=== PATIENT | male | born 1955 | race Caucasian/White ===

== ENCOUNTER 2022-07-23 13:26 | Observation (INO) | payer OTHER, MEDICARE ==
[~2022-07-23] VITALS: Ht 175.3 cm; Wt 52.0 kg
[2022-07-23] MEDS ORDERED: LIDOCAINE UROJET 2% GEL 10 ML PKG TOP ONE (14:00)
[2022-07-23 14:12] LABS: BASOPHILS # (AUTO) 0.1 10^3/uL (0.0-0.1); BASOPHILS % (AUTO) 0 % (0-10); EOSINOPHILS # (AUTO) 0.1 10^3/uL (0.0-0.3); EOSINOPHILS % (AUTO) 1 % (0-10); HEMATOCRIT 43 % (40-54); HEMOGLOBIN 14.8 g/dL (13.3-17.7); LYMPHOCYTES # (AUTO) 1.7 10^3/uL (1.0-4.0); LYMPHOCYTES % (AUTO) 12 % (12-44); MEAN CORPUSCULAR HEMOGLOBIN 30 pg (25-34); MEAN CORPUSCULAR HGB CONC 34 g/dL (32-36); MEAN CORPUSCULAR VOLUME 88 fL (80-99); MEAN PLATELET VOLUME 9.6 fL (9.0-12.2); MONOCYTES # (AUTO) 1.3 10^3/uL (0.0-1.0); MONOCYTES % (AUTO) 10 % (0-12); NEUTROPHILS # (AUTO) 10.7 10^3/uL (1.8-7.8); NEUTROPHILS % (AUTO) 77 % (42-75); PLATELET COUNT 315 10^3/uL (130-400)
[2022-07-23 14:22] LABS: POTASSIUM 4.8 MMOL/L (3.6-5.0)
[2022-07-23 14:23] LABS: CALCIUM 10.5 MG/DL (8.5-10.1)
[2022-07-23 14:27] LABS: CREATININE SERUM 2.28 MG/DL (0.60-1.30)
[2022-07-23 14:29] LABS: BILIRUBIN,URINE NEGATIVE (NEGATIVE); CLARITY,URINE CLOUDY; COLOR,URINE YELLOW; GLUCOSE, URINE (UA) NEGATIVE (NEGATIVE); KETONES,URINE NEGATIVE (NEGATIVE); LEUKOCYTE ESTERASE ,URINE NEGATIVE (NEGATIVE); NITRITE,URINE NEGATIVE (NEGATIVE); PROTEIN,URINE NEGATIVE (NEGATIVE)
--- NOTE | 2022-07-23 14:33 | ED GU-Male ---
General Chief Complaint: - Reproductive Stated Complaint: CANNOT URINATE Nursing Triage Note: TO ROOM 08 WITH COMPLAINTS OF TROUBLE URINATING X2 WEEKS BUT HAS NOT VOIDED FOR X2 DAYS. PT COMPLAINS OF SEVERE ABD PAIN Source: patient Exam Limitations: no limitations History of Present Illness Date Seen by Provider: Jul 23, 2022 Time Seen by Provider: 13:43 Initial Comments Patient is a 67-year-old male who presents to the emergency room with a chief complaint of not being able to urinate. Patient states that he started having some issues with dribbling with urination about 2 weeks ago. He states that persisted up until the last couple of days when he quit voiding completely. He states he had pretty significant lower abdominal pain until yesterday and the pain is now improved. He states over the last couple of weeks he has been straining to have bowel movements and developed hemorrhoids. He used [id number] laxatives and softeners until he was able to get his stools moving again. He states his hemorrhoids are better. He did have a little bit of bloody stool at one point but that resolved on its own. He denies fevers or chills. He denies nausea or vomiting. He states he has a known history of some prostate trouble. [facility] He does not take any daily medications. He has not been taking Tylenol or ibuprofen. Movement makes the discomfort a little bit more intense. Remaining still, si tting makes it a little better. He does not have a local physician. Timing/Duration: other Severity/Quality: severe Location: suprapubic Radiation: none Activities at Onset: none Sexual [place] History: not active Associated Symptoms: abdominal pain Allergies and Home Medications Allergies Coded Allergies: No Known Drug Allergies (Unverified , 07/23/22) Patient Home Medication List Home Medication List Reviewed: Yes Finasteride (Proscar) 5 Mg Tablet, 5 MG PO DAILY Prescribed by: LAMIN NGUYEN on 07/24/221599 Tamsulosin HCl (Flomax) 0.4 Mg Cap, 0.4 MG PO DAILY@1800 Prescribed by: LAMIN NGUYEN on 07/24/22 1600 Review of Systems Review of Systems Constitutional: see HPI EENTM: no symptoms reported Respiratory: no symptoms reported Cardiovascular: no symptoms reported Gastrointestinal: abdominal pain Genitourinary: pain, urgency, other (retention) Musculoskeletal: no symptoms reported Skin: no symptoms reported All Other Systemes Reviewed Negative Unless Noted: Yes Past Jyuzvgc-Epetur-Vnuvam Hx Patient Social History Smoking Status: Current Everyday Smoker Substance use?: No Alcohol Use?: No Immunizations Up To Date Second COVID19 Vaccination Ashwin: UNKNOWN COVID19 Vaccine Corn Breeder: PARESH Physical Exam Vital Signs Vital Signs - First Documented 07/23/22 07/23/22 13:40 15:48 Temp 36.7 Pulse 108 Resp 16 B/P (MAP) 136/94 (108) Pulse Ox 96 O2 Delivery Room Air Capillary Refill : Less Than 3 Seconds Height, Weight, BMI Height: '" Weight: lbs. oz. kg; 17.00 BMI Method: General Appearance: no apparent distress, thin HEENT: PERRL/EOMI Cardiovascular: regular rate, rhythm Respiratory: lungs clear, normal breath sounds, no respiratory distress, no accessory muscle use Gastrointestinal: normal bowel sounds, distended (suprapubic distension, almost reaching the umbilicus. tender.) Extremities: normal range of motion, non-tender, normal inspection, no pedal edema, no calf tenderness, normal capillary refill Neurologic/Psychiatric: alert, normal mood/affect, oriented x 3 Skin: normal color, warm/dry Progress/Results/Core Measures Suspected Sepsis SIRS Temperature: Pulse: 108 Respiratory Rate: 16 Laboratory Tests 07/23/22 14:05: White Blood Count 14.0H Blood Pressure 136 /94 Mean: 108 Laboratory Tests 07/23/22 14:05: Creatinine 2.28H, Platelet Count 315 Results/Orders Lab Results Laboratory Tests Test 07/23/22 14:05 07/23/22 14:24 Range/Units White Blood Count 14.0 H 4.3-11.0 10^3/uL Red Blood Count 4.91 4.30-5.52 10^6/uL Hemoglobin 14.8 13.3-17.7 g/dL Hematocrit 43 40-54 % Mean Corpuscular Volume 88 80-99 fL Mean Corpuscular Hemoglobin 30 25-34 pg Mean Corpuscular Hemoglobin Concent 34 32-36 g/dL Red Cell Distribution Width 13.2 10.0-14.5 % Platelet Count 315 130-400 10^3/uL Mean Platelet Volume 9.6 9.0-12.2 fL Immature Granulocyte % (Auto) 0 % Neutrophils (%) (Auto) 77 H 42-75 % Lymphocytes (%) (Auto) 12 12-44 % Monocytes (%) (Auto) 10 0-12 % Eosinophils (%) (Auto) 1 0-10 % Basophils (%) (Auto) 0 0-10 % Neutrophils # (Auto) 10.7 H 1.8-7.8 10^3/uL Lymphocytes # (Auto) 1.7 1.0-4.0 10^3/uL Monocytes # (Auto) 1.3 H 0.0-1.0 10^3/uL Eosinophils # (Auto) 0.1 0.0-0.3 10^3/uL Basophils # (Auto) 0.1 0.0-0.1 10^3/uL Immature Granulocyte # (Auto) 0.1 0.0-0.1 10^3/uL Sodium Level 136 135-145 MMOL/L Potassium Level 4.8 3.6-5.0 MMOL/L Chloride Level 102 98-107 MMOL/L Carbon Dioxide Level 21 21-32 MMOL/L Anion Gap 13 5-14 MMOL/L Blood Urea Nitrogen 31 H 7-18 MG/DL Creatinine 2.28 H 0.60-1.30 MG/DL Estimat Glomerular Filtration Rate 31 BUN/Creatinine Ratio 14 Glucose Level 130 H 70-105 MG/DL Calcium Level 10.5 H 8.5-10.1 MG/DL Urine Color YELLOW Urine Clarity CLOUDY Urine pH 6.0 5-9 Urine Specific [place] 1.025 H 1.016-1.022 Urine Protein NEGATIVE NEGATIVE Urine Glucose (UA) NEGATIVE NEGATIVE Urine Ketones NEGATIVE NEGATIVE Urine Nitrite NEGATIVE NEGATIVE Urine Bilirubin NEGATIVE NEGATIVE Urine Urobilinogen 0.2 < = 1.0 MG/DL Urine Leukocyte Esterase NEGATIVE NEGATIVE Urine RBC (Auto) NEGATIVE NEGATIVE Urine RBC NONE /HPF Urine WBC 0-2 /HPF Urine Squamous Epithelial Cells NONE /HPF Urine Crystals NONE /LPF Urine Bacteria FEW H /HPF Urine Casts NONE /LPF Urine Mucus NEGATIVE /LPF Urine Culture Indicated YES Micro Results Microbiology 07/23/22 Urine Culture - Final, Complete NO GROWTH My Orders Orders - MARY ELLEN PEREIRA MD Ed Iv/Invasive Line Start (07/23/22 13:54) Cbc With Automated Diff (07/23/22 13:54) Basic Metabolic Panel (07/23/22 13:54) Ua Culture If Indicated (07/23/22 13:54) Catheter(Urinary) Insert & Ass 03,15 (07/23/22 13:54) Lidocaine 2% (Urojet) (Xylocaine Urojet) (07/23/22 14:00) Urine Culture (07/23/22 14:24) Medications Given in ED Vital Signs/I&O 07/23/22 07/23/22 13:40 15:48 Temp 36.7 36.7 Pulse 108 79 Resp 16 16 B/P (MAP) 136/94 (108) 136/94 Pulse Ox 96 98 O2 Delivery Room Air Capillary Refill : Less Than 3 Seconds Blood Pressure Mean: 108 Progress Note : Time: 15:34 Progress Note Patient with significant relief after malone placed (1 liter) Patient seen and evaluated by me, 67-year-old male with acute urinary retention. Evaluation today includes physical exam, CBC, chemistry and urinalysis. Pertinent physical exam findings thin elderly appearing male in no acute distress. Heart is regular, lungs are clear. Abdomen distended consistent with urinary retention. Tender to palpation over the bladder/lower abdomen. No lower extremity edema. No focal neurologic deficits. Differential diagnosis based on history and physical includes acute urinary retention secondary to prostate enlargement, urinary tract infection. Concern for acute renal failure due to days and weeks of inability to void normally. Labs reviewed by me, CBC shows a white count of 14,000, hemoglobin of 14.8 hematocrit of 43, platelet count of 315. 77% segs. Chemistry remarkable for B UN of 31 and creatinine of 2.28. Glucose of 130. Urinalysis reviewed and no evidence of infection is noted. Patient is treated with Malone catheter placement with resultant 1 L of urine in the Malone bag. He was much more comfortable after the Malone was placed. Due to his abnormal renal function and his leukocytosis patient will be admitted to the medical floor for hydration and hopefully correction of his acute kidney injury. There are no old labs in the computer for comparison as the patient has never been to this facility before. He states its been years since he has seen a physician. Patient is comfortable with admission observation. Case was discussed with the hospitalist, Dr. Nguyen who accepts the patient for admission. Counseling-Asymptomatic: 3-10 minutes Follow-up with PCP to: Discuss Further Options Departure Communication (Admissions) Time/Spoke to Admitting Phy: 15:[address] Nguyen Impression Primary Impression: Acute urinary retention Additional Impression: Acute kidney injury Disposition: ADMITTED INPATIENT Condition: Stable Admissions Decision to Admit Reason: Admit from ER (General) Decision to Admit/Date: Jul 23, 2022 Time/Decision to Admit Time: 15:34 Departure-Patient Inst. Referrals: NO,LOCAL PHYSICIAN (PCP/Family) Primary Care Physician Scripts Finasteride (Proscar) 5 Mg Tablet 5 MG PO DAILY for 30 Days, #30 TAB Prov: LAMIN NGUYEN MD 07/24/22 Tamsulosin HCl (Flomax) 0.4 Mg Cap 0.4 MG PO DAILY@1800 for 30 Days, #30 CAP Prov: LAMIN NGUYEN MD 07/24/22 MARY ELLEN PEREIRA MD Jul 23, 2022 14:33
[2022-07-23 14:55] LABS: BACTERIA,URINE FEW /HPF; WBC,URINE 0-2 /HPF
[2022-07-23 16:00] VITALS: BP 139/68
[2022-07-23 16:25] VITALS: BP 136/94
[2022-07-23] MEDS ORDERED: ONDANSETRON 4 MG/2 ML (SDV) Z0FRAN IVP PRN (16:30)
[2022-07-23] MEDS ORDERED: ACETAMINOPHEN 500 MG TAB (TYLENOL) PO PRN (16:30)
[2022-07-23] MEDS: NS IV 1000 ML 1,000 ML IV SCH (16:36)
[2022-07-23] MEDS ORDERED: TAMSULOSIN 0.4 MG (FLOMAX) CAP PO SCH (18:00)
[2022-07-23 19:37] VITALS: BP 105/66
[2022-07-23 23:31] VITALS: BP 110/67
[2022-07-24] MEDS: NS IV 1000 ML 1,000 ML IV SCH ×2 (00:56→08:30)
[2022-07-24 03:20] VITALS: BP 104/68
[2022-07-24 06:19] LABS: CALCIUM 8.4 MG/DL (8.5-10.1); CREATININE SERUM 1.47 MG/DL (0.60-1.30); POTASSIUM 3.9 MMOL/L (3.6-5.0)
[2022-07-24 07:24] VITALS: BP 105/60
[2022-07-24] MEDS ORDERED: NICOTINE 21 MG (NICODERM) PATCH TD SCH (09:00)
--- NOTE | 2022-07-24 10:06 | Physical Therapy Evaluation ---
PT Evaluation-General Medical Diagnosis Admission Date Jul 23, 2022 at 15:51 Medical Diagnosis: acute kidney injury, urinary retention Onset Date: Jul 23, 2022 Therapy Diagnosis Therapy Diagnosis: N/A Precautions Precautions/Isolations: Fall Prevention, Standard Precautions Weight Bear Status Right Lower Extremity: Right Full Weight Bearing Left Lower Extremity: Left Full Weight Bearing Referral Physician: Montez Reason for Referral: Evaluation/Treatment Medical History Pertinent Medical History: Smoking Current History Pt presented to ED with c/o inability to urinate and abdominal pain. Reviewed History: Yes Social History Home: Single Level Current Living Status: Alone Entry Into Home: Stairs With Railing PT Steps Into Home: 6 Prior Prior Level of Function SCALE: Activities may be completed with or without assistive devices. 8-Astn[place]abk-kovgufl completes the activity by him/herself with no assistance from a helper. 5-Set-up or Clean-up Assistance-helper sets up or cleans up; patient completes activity. [place] assists only prior to or following the activity. 4-Supervision or Touching Assistance-helper provides verbal cues and/or touching/steadying and/or contact guard assistance as patient completes activity. Assistance may be provided throughout the activity or intermittently. 3-Partial/Moderate Assistance-helper does LESS THAN HALF the effort. [place] lifts, holds or supports trunk or limbs, but provides less than half the effort. 2-Substantial/Maximal Assistance-helper does MORE THAN HALF the effort. [place] lifts or holds trunk or limbs and provides more than half the effort. 9-Gacedhuvy-vareek does ALL the effort. Patient does none of the effort to complete the activity. Or, the assistance of 2 or more helpers is required for the patient to complete the activity. If activity was not attempted, code reason: 7-Patient Refused. 9-Not Applicable-not attempted and the patient did not perform the activity before the current illness, exacerbation or injury. 10-Not Attempted due to Environmental Limitations-(lack of equipment, weather restraints, etc.). 88-Not Attempted due to Medical Conditions or Safety Concerns. Bed Mobility: 6 Transfers (B,C,W/C): 6 Gait: 6 Stairs: 6 Indoor Mobility (Ambulation): Independent Stairs: Independent Prior Devices Use: None PT Evaluation-Current Subjective Pt in bed, anxious to discharge home. Pt denies pain. "The only problem I have is this stuff attached to me". Reports mobility is at PLOF. Pain Numeric Pain Scale: 0-No Pain Objective Patient Orientation: Person, Place, Time, Situation Attachments: Francisco Catheter, IV ROM/Strength ROM Upper Extremities WFL for mobility ROM Lower Extremities WFL for mobility Strength Upper Extremities WFL for mobility Strength Lower Extremities WFL for mobility Integumentary/Posture Integumentary See nurse's note Sensory Vision: Functional Sensation Right Upper Extremit: Intact Sensation Left Upper Extremity: Intact Sensation Right Lower Extremit: Intact Sensation Left Lower Extremity: Intact Transfers Roll Left to Right (QC): 6 Sit to Lying (QC): 6 Lying to Sitting/Side of Bed(Q: 6 Sit to Stand (QC): 6 Gait Does the Patient Walk?: Yes Mode of Locomotion: Walk Anticipated Mode of Locomotion: Walk Walk 10 feet (QC): 6 Walk 50 ft with 2 Turns(QC): 6 Walk 150 ft (QC): 6 Distance: 300 Gait Assistive Device: None Comments/Gait Description Safe, reciprocal (I) gait. Moderate gait speed without AD. Wheelchair Training Does the Pt Use a Wheelchair?: No Type of Wheelchair: N/A Balance Sitting Static: Normal Sitting Dynamic: Normal Standing Static: Normal Standing Dynamic: Normal Treatment Eval. Returned to bed, nurse notified of (I) mobility Assessment/Needs Pt is (I) for functional mobility, currently at PLOF. Skilled PT services not indicated at this time. Rehab Potential: Good PT Short Term Goals Short Term Goals No goals established as Pt is at PLOF. No PT indicated. PT Scrum Product Owner Goals Correction Goals No goals established as Pt is at PLOF. No PT indicated. PT Plan Treatment/Plan Treatment Plan: Discontinue PT Treatment Duration: Jul 24, 2022 Frequency: No PT indicated Patient and/or Family Agrees t: Yes Discharge Recommendations Plan home (I) Equpiment Recommendations-D/C: None Time Time In: 945 Time Out: 955 DATE: Jul 24, 2022 Total Billed Treatment Time: 10 Total Billed Treatment 1, EVAL (low) SHANNAN WAGONER DPZachary Jul 24, 2022 10:06
[2022-07-24 11:16] VITALS: BP 110/59
--- NOTE | 2022-07-24 14:35 | History & Physical-Hospitalist ---
History of Present Illness HPI/Chief Complaint Griffin Rodriguez Jr. is a 67yo male hard of hearing male presenting due to pain located in penis and anuria. Pt states that it began about 3 weeks ago as urgency; pt states he would have a sense of urgency to urinate, but would only be able to urinate small amounts. Pt states as time progressed, he urinated less and less until about 3 days ago he stopped urinating and had associated "screaming" 10/10 pain located in the penis. Pt states that pain was partially relived to a 5/10 while taking a hot shower or after defecation. Pain worsened during the process of defecation. Pt denies fever, chills, chest pain, n/v/d, and abdominal pain. Source: patient Date Seen 07/24/22 Attending Physician No,Local Physician PCP Admitting Physician: Elena Herrmann MD Attending Physician: Elena Herrmann MD Referring Physician Date of Admission Jul 23, 2022 at 15:51 Home Medications & Allergies Home Medications Reviewed patient Home Medication Reconciliation performed by pharmacy medication reconciliations communications tower technician and/or nursing. Patients Allergies have been reviewed. Allergies Allergies Coded Allergies No Known Drug Allergies (Unverified07/23/22) Past Dufhpoe-Ywevdh-Beryfd Hx Patient Social History Tobacco Use?: Yes Tobacco type used: Cigarettes Smoking Status: Current Everyday Smoker Use of E-Cig and/or Vaping dev: No Substance use?: No Alcohol Use?: No Pt feels they are or have been: No Immunizations Up To Date Second COVID19 Vaccination Ashwin: UNKNOWN Tetanus Booster (TDap): More Than 5 Years Hepatitis A: No Hepatitis B: No Current Status Advance Directives: No Communicates: Verbally Primary Language: Faroese Preferred Spoken Language: Faroese Sensory deficits: Hearing impairment Implanted or Applied Medical D: None Review of Systems Constitutional: No chills, No fever Respiratory: No cough, No dyspnea on exertion Cardiovascular: No chest pain Gastrointestinal: No abdominal pain, No constipation, No diarrhea, No nausea, No vomiting Genitourinary: No discharge; frequency, pain Psychiatric/Neurological: Denies Headache Physical Exam Physical Exam Vital Signs Vital Signs - First Documented 07/23/22 07/23/22 13:40 15:48 Temp 36.7 Pulse 108 Resp 16 B/P (MAP) 136/94 (108) Pulse Ox 96 O2 Delivery Room Air Capillary Refill : Less Than 3 Seconds Height, Weight, BMI Height: '" Weight: lbs. oz. kg; 16.92 BMI Method: General Appearance: No Apparent Distress Neck: Full Range of Motion Respiratory: Chest Non Tender, Lungs Clear, Normal Breath Sounds Cardiovascular: Regular Rate, Rhythm, No Edema, No Murmur, Normal Peripheral Pulses Gastrointestinal: Normal Bowel Sounds, Non Tender, Soft Extremity: Non Tender, No Calf Tenderness, No Pedal Edema Neurologic/Psychiatric: Alert, Oriented x3 Skin: Normal Color, Warm/Dry Results Results/Procedures Labs Laboratory Tests 07/23/22 14:05 07/24/22 05:12 Patient resulted labs reviewed. Assessment/Plan Assessment and Plan LITZY Clinical Quality Measures Smoking Cessation Counseling: Counseling-Asymptomatic: 3-10 minutes JAVI KIM Jul 24, 2022 14:35
--- NOTE | 2022-07-24 14:47 | Short Stay Summary-Hospitalist ---
JAVI KIM 07/24/22 1447: History of Present Illness HPI/Chief Complaint Griffin Rodriguez Jr. is a 67yo male hard of hearing male presenting due to pain located in penis and anuria. Pt states that it began about 3 weeks ago as urgency; pt states he would have a sense of urgency to urinate, but would only be able to urinate small amounts. Pt states as time progressed, he urinated less and less until about 3 days ago he stopped urinating and had associated "scr eaming" 10/10 pain located in the penis. Pt states that pain was partially relived to a 5/10 while taking a hot shower or after defecation. Pain worsened during the process of defecation. Pt denies fever, chills, chest pain, n/v/d, and abdominal pain. Date Seen 07/24/22 Attending Physician No,Local Physician PCP Admitting Physician: Lamin Nguyen MD Attending Physician: Lamin Nguyen MD Referring Physician Date of Admission Jul 23, 2022 at 15:51 Home Medications & Allergies Home Medications Reviewed patient Home Medication Reconciliation performed by pharmacy medication reconciliations model technician and/or nursing. Patients Allergies have been reviewed. Allergies Allergies Coded Allergies No Known Drug Allergies (Unverified07/23/22) Past Medical/Social/Family Hx Patient Social History Tobacco Use?: Yes Tobacco type used: Cigarettes Smoking Status: Current Everyday Smoker Use of E-Cig and/or Vaping dev: No Substance use?: No Alcohol Use?: No Pt stated abuse/neglect: No Immunizations Up To Date Influenza Vaccine Up-to-Date: No; Not Current Second COVID19 Vaccination Ashwin: UNKNOWN Tetanus Booster (TDap): More Than 5 Years Hepatitis A: No Hepatitis B: No Current Status Advance Directives: No Communicates: Verbally Primary Language: Emirati Preferred Spoken Language: [place] Sensory deficits: Hearing impairment Implanted or Applied Medical D: None Review of Systems Constitutional: No chills, No fever Respiratory: No cough, No dyspnea on exertion Gastrointestinal: No abdominal pain, No constipation, No diarrhea, No nausea, No vomiting Genitourinary: decreased output, frequency Physical Exam Physical Exam Vital Signs Vital Signs - First Documented 07/23/22 07/23/22 13:40 15:48 Temp 36.7 Pulse 108 Resp 16 B/P (MAP) 136/94 (108) Pulse Ox 96 O2 Delivery Room Air Capillary Refill : Less Than 3 Seconds Height, Weight, BMI Height: '" Weight: lbs. oz. kg; 16.92 BMI Method: General Appearance: No Apparent Distress Neck: Full Range of Motion Respiratory: Chest Non Tender, Lungs Clear, Normal Breath Sounds Cardiovascular: Regular Rate, Rhythm, No Edema, No Murmur, Normal Peripheral Pulses Gastrointestinal: Normal Bowel Sounds, Non Tender, Soft Extremity: Non Tender, No Calf Tenderness, No Pedal Edema Neurologic/Psychiatric: Alert, Oriented x3 Skin: Normal Color, Warm/Dry Results Results/Procedures Labs Laboratory Tests 07/23/22 14:05 07/24/22 05:12 Patient resulted labs reviewed. Short Stay Diagnosis Conclusion Ed Rodriguez is a 67yo male presenting due to Urinary Retention Secondary to BPH. Urinary Retention Secondary to BPH Pt has known history of Prostate Issues [facility] Malone Catheter placed Will discontinue Malone for independent trial If cannot urinate will discharge patient with Malone LITZY Elevated BUN and Cr IV Fluids started Improved from yesterday LITZY Elevated BUN and Cr IV Fluids started Improved from yesterday Chronic Smoker 25 pack year history Nicotine Patch Clinical Quality Measures Smoking Cessation Counseling: Counseling-Asymptomatic: 3-10 minutes LAMIN NGUYEN MD 07/24/222106: History of Present Illness Source: patient Exam Limitations: no limitations Time Seen by a Provider: 11:40 Past Medical/Social/Family Hx Past Medical History BPH Family Medical History Family Hx: non-contributory Short Stay Diagnosis Discharge Diagnosis-Short Stay Admission Diagnosis Urinary retention Final Discharge Diagnosis Urinary retention Conclusion Plan Admitted with urinary retention. Likely due to BPH. Started on Flomax. Malone estefany kiah. Failed trial without malone. Malone replaced and discharged with catheter supplies and education. Follow up with PCP and Urology. Diagnosis/Problems Diagnosis/Problems (1) Acute urinary retention Status: Acute (2) BPH (benign prostatic hyperplasia) Status: Acute Qualifiers: Qualified Codes: N40.1 - Benign prostatic hyperplasia with lower urinary tract symptoms; R33.8 - Other retention of urine (3) Acute kidney injury Status: Acute (4) Low BMI Status: Acute Supervisory-Addendum Brief Verification & Attestation Participated in pt care: history, MDM, physical Personally performed: exam, history, MDM, supervision of care Care discussed with: Medical Student Procedures: n/a Results interpretation: Verified all documentation A medical student performed and documented this service in my presence. I reviewed and verified all information documented by the medical student and made modifications to such information, when appropriate. I personally performed the physical exam and medical decision making. JAVI KIM Jul 24, 2022 14:47 LAMIN NGUYEN MD Jul 24, 2022 21:07
[2022-07-24] MEDS ORDERED: TMSL.4C PO (16:00)
[2022-07-24] MEDS ORDERED: FINA5TAB PO (16:00)
[2022-07-24 16:43] VITALS: BP 118/71
[2022-07-25] MEDS ORDERED: NICOTINE PATCH REMOVAL TP SCH (08:59)
== END 2022-07-24 15:59 | disposition home or self-care (01) ==
LOC: EDUNIT# 13:26 → ER 13:30 → 4TH 15:51 → UNDOADMOB 15:51 → 4TH 16:00 → UNDODISOB 07-24 17:30
PROVIDERS: ADMIT Internal Medicine; ATTEND Internal Medicine
DX: R33.8 Other retention of urine (principal); N40.1 Benign prostatic hyperplasia with lower urinary tract symptoms; N17.9 Acute kidney failure, unspecified; F17.210 Nicotine dependence, cigarettes, uncomplicated
CPT/HCPCS: 36415; 51702; 80048; 81000; 85025; 87088; 96361; G0378